=== PATIENT | male | born 1960 | race Caucasian/White ===

== ENCOUNTER 2025-02-28 19:34 | Emergency (ER) | payer MEDICAID, SELFPAY ==
--- NOTE | ~2025-02-28 | XR_ITS ---
EXAMINATION: XR chest 2V Exam Date/Time: 02/28/2025 20:01 CDT HISTORY: sob Comparison: None. RESULT: Lines, tubes, and devices: None. Lungs and pleura: Irregular nodular opacity over the right upper lung, lungs otherwise clear. Mild b lunting of the left posterior costophrenic angle Cardiomediastinal silhouette: Stable. Other: No acute osseous or upper abdominal finding. IMPRESSION: Possible right upper lung pulmonary nodule versus summation artifact, recommend comparison to outside studies if available or timely outpatient low-dose noncontrast CT of the chest for confirmation. Trace left pleural effusion versus chronic pleural scarring. Reviewed, dictated and finalized at location K. IMPRESSION: Possible right upper lung pulmonary nodule versus summation artifact, recommend comparison to outside studies if available or timely outpatient low-dose nonco ntrast CT of the chest for confirmation. Trace left pleural effusion versus chronic pleural scarring.
[2025-02-28 19:43] VITALS: BP 153/85; PULSE 76; RESP 16; TEMP 36.4; O2SAT 97
--- NOTE | 2025-02-28 19:48 | ECG_ITS ---
Test Date: 2025-02-28 19:52:49 Measurements Intervals [place] Rate: 72 P: 37 SC: 157 QRS: -53 QRSD: 154 T: 10 QT: 392 QTc: 430 Interpretive Statements SINUS RHYTHM RIGHT BUNDLE BRANCH BLOCK [120+ ms QRS DURATION, UPRIGHT V1, 40+ ms S IN I/aVL/V4/V5/V6] LEFT ANTERIOR FASCICULAR BLOCK [QRS AXIS <= -45, QR IN I, RS IN II] ABNORMAL ELECTROCARDIOGRAM No previous ECG available for comparison Electronically Signed On 03-01-2025 07:41:53 CDT by Moe Kidd M.D.
[2025-02-28 20:03] LABS: Hematocrit 38.3 % (42.0-52.0); Hemoglobin 12.7 g/dL (14.0-18.0); Immature Granulocyte Percent A 0.3 % (0-0.5); Lymphocytes Absolute Auto 1.23 K/mm3 (0.9-3.2); Mean Corpuscular HGB Conc 33.2 g/dl (32-36); Mean Corpuscular Hemoglobin 29.3 pg (26-34); Mean Corpuscular Volume 88.5 fl (80-100); Nucleated Red Blood Cells Absolute Auto 0.000 K/mm3 (0.0-0.012); Nucleated Red Blood Cells Perc 0.0 % (0.0-0.2); Platelet Count Result 199 k/mm3 (150-375); Red Blood Count 4.33 M/mm3 (4.6-6.20); White Blood Count 9.0 K/mm3 (4.5-10.0)
[2025-02-28 20:14] LABS: INR 1.0; Prothrombin Time 13.8 Seconds (11.1-14.7)
[2025-02-28 20:15] LABS: Partial Thromboplastin Time 26.9 Seconds (22.3-36.8)
[2025-02-28 20:42] LABS: Alanine Aminotransferase 24 U/L (6-50); Albumin Level 4.4 g/dL (3.5-5.1); Alkaline Phosphatase 72 U/L (38-126); Anion Gap 12 mmol/L (4-12); Aspartate Amino Transferase 29 U/L (17-59); Bilirubin,Total 0.5 mg/dL (0.2-1.3); Blood Urea Nitrogen 21 mg/dL (9-20); Calcium 9.4 mg/dL (8.4-10.2); Carbon Dioxide 22 mmol/L (22-30); Chloride 101 mmol/L (98-107); Estimated CRCL calculation 69 ml/min; Estimated Glomerular Filt Rate > 60; Glucose 109 mg/dL (65-110); Potassium 3.8 mmol/L (3.4-5.0); Sodium 135 mmol/L (137-145); Total Protein 7.4 g/dL (6.3-8.2)
[2025-02-28 20:54] LABS: Troponin I < 0.012 ng/mL (0.000-0.034)
[2025-03-01 00:07] VITALS: BP 129/75; PULSE 72; RESP 16; O2SAT 96
--- OUTSIDE RECORDS SUMMARY | 2025-03-01 00:11 | XMS_ITS | Clinical Summary ---
Author Organization [facility] [address] Address [address] [place] [address] Care Team Providers Care Counseling Specialist Name Role Phone Unavailable Primary Care Provider Unavailabl e Allergies No known active allergies Medications No known medications Immunizations Immunization Administration Dates Next Due (ADACEL/BOOSTRIX)(10 YR UP) TDAP VACCINE, 0.5ML, IM 07/28/2018 Social History Tobacco Use Types Packs/Day Years Used Date Smoking Tobacco: Never Smokeless Tobacco: Never Alcohol Use Standard Drinks/Week Comments No 0 (1 standard drink = 0.6 oz pur e alcohol) Sex and Gender Information Value Date Recorded Sex Assigned at Not on file Legal Sex Male 9:55 PM CDT Gender Identity Not on file Sexual Orientation Not on file Last Filed Vital Signs Vital Sign Reading Time Taken Comments Blood Pressure 146/88 07/28/2018 10:28 AM ENGAGEMENT LEAD manual left arm Pulse - - Temperature 36.6 C (97.9 F) 07/28/2018 8:17 AM ENGAGEMENT LEAD Respiratory Rate 16 07/28/2018 8:17 AM ENGAGEMENT LEAD Oxygen Saturation 96% 07/28/2018 8:1 7 AM ENGAGEMENT LEAD Inhaled Oxygen Concentration - - Weight 106.6 kg (235 lb) 07/28/2018 8:1 7 AM ENGAGEMENT LEAD Height 185.4 cm (6' 1) 07/28/2018 8:17 AM ENGAGEMENT LEAD Body Mass Index 31 07/28/2018 8:17 AM ENGAGEMENT LEAD Plan of Treatment Health Maintenance Due Date Last Done Comments Pre-Diabetes and Diabetes Screening 1961 COLORECTAL SCREENING 2006 Colorectal Cancer Screening 2006 FIT-DNA Q 3 years 2006 FIT/FOBT Q 1 year 2006 Flex Sig/CT Colonography Q 5 years 2006 ZOSTER VACCINE (1 of 2) 2011 INFLUENZA VACCINE (#1) 2025 DTAP/TDAP/TD VACCINES (3 - Td or Tdap) 06/14/2033, 07/28/2018 RSV VACCINE (60+ or ) (1 - 1-dose 75+ series) 2036
--- OUTSIDE RECORDS SUMMARY | 2025-03-01 00:11 | XMS_ITS | Clinical Summary ---
Author Organization [facility] [facility] Address [address] [facility] [address] Care Team Providers Care Chicken Stuffer Name Role Phone Shireen Churchill MD Primary Care Provider [phone] Source Comments [facility],non-owned Affiliates and Associated Physician Practices is amultiple site organization consisting of ambulatory clinics and hospital sitesin [place], [place], [place] and [place]. This disclosure is being madepursuant to the Care Everywhere program and may not contain all information available regarding this patient. Last updated 18.[facility] Allergies No known active allergies Medications * Be aware that medications may not be up to date on this document. Alwaysverify current medications with the patient. diphenhydrAMIN E-APAP, sleep, (Tylenol PM Extra Strength) 25-500 MG tablet Take 1 (one) tablet by mouth nightly as needed for Insomnia Active cyclobenzaprin e (Flexeril) 10 MG tablet Take 1 (one) tablet by mouth 3 times daily as needed for Muscle Spasms 30 tablet 4 Active methocarbamol (Robaxin) 500 MG tablet Take 1-3 tablets by mouth every 6 hours as needed for back pain or spasm X2 days Then take 1-2 tablets by mouth every 8 hours as needed. 30 tablet 4 Active acetaminophen (Tylenol) 500 MG tablet Take 1 (one) tablet by mouth every 4 hours as needed for Fever or Pain Maximum allowable Acetaminophen amount = 4 Grams (4000 mg) / 24 hours. Active atorvastatin (Lipitor) 40 MG tablet Take 1 (one) tablet by mouth once daily 100 tablet 4 4 Active Additional Information Patient not taking.Reported on 12/03/2024 lisinopril-hyd roCHLOROthiazi de (Prinzide; Zestoretic) 20-12.5 MG tablet Take 1 (one) tablet by mouth once daily 90 tablet 3 4 Active meloxicam (Mobic) 15 MG tablet TAKE 1 TABLET BY MOUTH DAILY 90 tablet 5 Active Active Problems Problem Noted Date Diagnosed Date Hypertension 04/30/2024 Arthritis of right hip 04/30/2024 Encounters Date Type Department Care Team Description 01/15/2025 Refill [facility] [address] [facility] [address] [place] [address] Shireen Churchill MD Refill Request 12/03/2024 11:10 AM CDT - 12/03/2024 11:59 PM CDT Hospital Encounter [facility] [address] [place] [address] Ximena Ontiveros, ESL TEACHER-RAMP AND CARGO SUPERVISOR Stefan Fulton APRN-TAE Discharge Disposition: Home or Self Care 12/03/2024 Travel from Last 3 Months Immunizations Immunization Administration Dates Next Due TDAP (7yrs+) 06/14/2023,07/28/2018 Social History Tobacco Use Types Packs/Day Years Used Date Smoking Tobacco: Never Smokeless Tobacco: Never Tobacco Cessation:Counseling Given: Not Answered Alcohol Use Standard Drinks/Week Comments Not Currently 0 (1 standard drink = 0.6 oz pur e alcohol) PHQ-2 Answer Date Recorded Patient Health Questionnaire-2 Score 0 12/03/2024 Sex and Gender Information Value Date Recorded Sex Assigned at Not on file 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 Gender Identity Not on file Sexual Orientation Not on file Last Filed Vital Signs Vital Sign Reading Time Taken Comments Blood Pressure 163/108 12/03/2024 12:26 PM CDT Pulse 57 04/30/2024 11:12 AM CDT Temperature 36.3 C (97.3 F) 12/03/2024 12:11 PM CDT Respiratory Rate 16 12/03/2024 12:11 PM CDT Oxygen Saturation 98% 12/03/2024 12:11 PM CDT Inhaled Oxygen Concentration - - Weight 99.1 kg (218 lb 6.4 oz) 04/30/2024 11:12 AM CDT Height 185.4 cm (6' 1) 04/30/2024 11:12 AM CDT Body Mass Index 28.81 04/30/2024 11:12 AM CDT Plan of Treatment Health Maintenance Due Date Last Done Comments COLOGUARD (AGES 45-75) - COL ON CA SCREENING 1961 COLON MONITORING 1961 COLONOSCOPY - COLON CA SCREENING 1961 CT COLONOGRAPHY - COLON CA SCREENING 1961 Colorectal Cancer Screening 1961 FIT - COLON CA SCREENING 1961 FLEX SIG - COLON CA SCREENING 1961 HIV SCREENING 1976 HEPATITIS C SCREENING 03/02/1979 PNEUMOCOCCAL VACCINE 50+ (1 of 1 - PCV) 2011 ZOSTER VACCINE (1 of 2) 2011 COVID-19 VACCINE (1 - 2023-2 5 season) 2024 INFLUENZA VACCINE (#1) 2025 SCREENING FOR DIABETES 04/30/2027 , 01/13/2024, 01/13/2024 DTAP/TDAP/TD VACCINES (3 - T d or Tdap) 06/14/2033 06/14/2023, 07/28/2018 Respiratory Syncytial Virus (RSV) Vaccine Pt: or over 60 yrs (1 - 1-dose 75+ series) 2036 DEPRESSION SCREENING Completed 12/03/2024, 10/11/2023 HEPATITIS B VACCINE Aged Out No longe r eligible based on patient's age to complete this topic HIB VACCINE Aged Out No longer eligi ble based on patient's age to complete this topic HPV VACCINE Aged Out No longer eligi ble based on patient's age to complete this topic MENINGOCOCCAL (Group B) VACCINE SHARED DECISION-MAKING Aged Out No longer eligible based on patient's age to complete this topic MENINGOCOCCAL GROUPS A/C/Y/W VACCINE Aged Out No longer eligible b ased on patient's age to complete this topic Procedures Procedure Name Priority Date/Time Associated Diagnosis Comments BASIC METABOLIC PANEL (CALCIUM TOTAL) Routine 04/30/2024 11:46 AM CDT Hypertension, unspecified type from Last 3 Months or Most Recently Relevant to Health Maintenance Results * (ABNORMAL) BASIC METABOLIC PANEL (BMP) (04/30/2024 11:46 AM CDT) Glucose 117(H) 70 - 105 mg/dL [facility] ACCOUNT BILL BUN 13 7 - 26 mg/dL [facility] ACCOUNT BILL Creatinine 1.13 0.72 - 1.25 mg/dL [facility] ACCOUNT BILL eGFR by CKD-EPI 73(L) >=90 mL/min/1.7 3 m2 [facility] ACCOUNT BILL Sodium 141 136 - 145 mmol/L [facility] ACCOUNT BILL Potassium 4.2 3.5 - 5.1 mmol/L [facility] ACCOUNT BILL Chloride 105 98 - 107 mmol/L [facility] ACCOUNT BILL CO2 25 22 - 29 mmol/L [facility] ACCOUNT BILL Calcium 9.7 8.4 - 10.4 mg/dL [facility] ACCOUNT BILL Blood BLOOD SPECIMEN / Unknown 04/30/2024 11:46 AM CDT 04/30/2024 Narrative [facility] ACCOUNT BILL - 04/30/2024 9:07 PM CDT Performed at: [address] [place] [id number] Interactive Multimedia Designer: Lacy Daley MD, Phone: [phone] us Shireen Churchill MD LAB - CHEMISTRY ORDERABLES Final Result [facility] ACCOUNT BILL [address] [place] [address] from Last 3 Months or Most Recently Relevant to Health Maintenance Care Teams Chicken Stuffer Relationship Specialty Start Date End Date Shireen Churchill MD [address] [facility] [address] [place] [address] PCP - General Family Medicine 03/13/24
--- NOTE | 2025-03-01 00:16 | ECG_ITS ---
Test Date: 2025-03-01 00:16:08 Measurements Intervals [place] Rate: 74 P: 36 ID: 164 QRS: -42 QRSD: 153 T: -5 QT: 379 QTc: 421 Interpretive Statements SINUS RHYTHM LEFT AXIS DEVIATION [QRS AXIS < -30] RIGHT BUNDLE BRANCH BLOCK [120+ ms QRS DURATION, UPRIGHT V1, 40+ ms S IN I/aVL/V4/V5/V6] ABNORMAL ECG Compared to ECG 02/28/2025 19:52:49 NO DIFFERENCE Electronically Signed On 03-01-2025 14:15:22 CDT by Moe Kidd M.D.
--- NOTE | 2025-03-01 00:21 | ED.SOB ---
HPI - SOB/Dyspnea General Chief Complaint: Shortness of Breath/Dyspnea Stated Complaint: SOB, hip and hand pain, body is ready to give up Time Seen by Provider: 02/28/25 23:59 History of Present Illness HPI Narrative: 64-year-old male with history of chronic arthritis and carpal tunnel presenting to the emergency department for complaints of an episode of shortness of breath last night. He states while he was in bed and getting up going to the bathroom he felt slightly short of breath and this resolved prior to arrival. Denies any chest pain or chest pressure with this sensation, no lightheadedness, dizziness, nausea, vomiting, back pain, abdominal pain. No history of any like this happening in the past. He has been in more pain recently from his arthritis in his hip and carpal tunnel as wrist and his states that he could of been anxious during that event but presently he is asymptomatic and denies any symptoms at all when examining him. No chronic medical conditions to his knowledge, no recent hospital visits or hospitalizations. Review of Systems Review of Systems: As reviewed above in HPI Exam Narrative: GENERAL: [Well-appearing, well-nourished, and in no acute distress.] HEAD: [Normocephalic, atraumatic.] EYES: [PERRLA and EOMI.] ENT: Nares clear, no rhinorrhea or epistaxis. Mucous membranes moist. NECK: Supple. CHEST: [Clear to auscultation. No respiratory distress.] HEART: [Regular rate and rhythm]. No murmur heard. [Normal peripheral pulses.] ABDOMEN: [Soft, nondistended], [nontender], [No rigidity or guarding] EXTREMITIES: Normal range of motion. [No edema.] SKIN: Warm, dry, no rash. NEURO: [No focal deficits]. Alert and oriented [x3.] PSYCH: [Normal mood and affect.] Course Vital Signs Vital signs: Vital Signs Temperature 36.4 C L 02/28/25 19:43 Pulse Rate 76 02/28/25 19:43 Respiratory Rate 16 02/28/25 19:43 Blood Pressure 153/85 H 02/28/25 19:43 Pulse Oximetry 97 02/28/25 19:43 Oxygen Delivery Room Air 02/28/25 19:43 Temperature 36.4 C L 02/28/25 19:43 Pulse Rate 73 03/01/25 00:34 Respiratory Rate 18 03/01/25 00:34 Blood Pressure 126/78 03/01/25 00:34 Pulse Oximetry 96 03/01/25 00:34 Oxygen Delivery Room Air 03/01/25 00:07 MDM - SOB/Dyspnea MDM Narrative Medical decision making narrative: 64-year-old male with history of chronic arthritis and carpal tunnel presenting to the emergency department for complaints of an episode of shortness of breath last night. He states while he was in bed and getting up going to the bathroom he felt slightly short of breath and this resolved prior to arrival. Denies any chest pain or chest pressure with this sensation, no lightheadedness, dizziness, nausea, vomiting, back pain, abdominal pain. No history of any like this happening in the past. He has been in more pain recently from his arthritis in his hip and carpal tunnel as wrist and his states that he could of been anxious during that event but presently he is asymptomatic and denies any symptoms at all when examining him. No chronic medical conditions to his knowledge, no recent hospital visits or hospitalizations. Patient is very well-appearing not any acute distress with normal vital signs without any significant hypertension, tachycardia, fever, hypoxia or tachypnea. He has clear breath sounds, strong symmetric pulses. Differential is broad given the vague symptomatology but overall he is well-appearing without any high risk factors for coronary syndrome, ACS or any infectious historical features to point towards pneumonia or bronchitis. [place] criteria. Cardiac workup ordered including troponin, EKG, chest x-ray, CBC, CMP. He was placed on disbursement clerk and re-evaluated. EKG shows right bundle branch block but no evidence of ST segment elevations, depressions or acute ischemia. Patient's workup was reassuring with no leukocytosis or significant levels of anemia. Normal platelet count. Normal coagulation panel, normal electrolytes, normal kidney function, normal glucose, normal LFTs. Negative troponin. Chest x-ray independently reviewed and also interpreted by Radiology shows a possible pulmonary nodule versus summation artifact with recommendations for outpatient timely follow-up image. Chronic pleural scarring is seen, no large effusions. Repeat EKG shows no delta changes from initial without any ST segment concerns. I discussed patient's x-ray findings with him and the need for outpatient evaluation and several months for repeat imaging and he was agreeable to this. He remains asymptomatic during our conversations and given his unremarkable laboratory studies, imaging and EKG. Patient felt comfortable going home at this time with close follow-up primary care. Given return precautions and discharge instructions and their questions were answered. Medical Records Attestation: I reviewed the patient's medical records. Lab Data Attestation: I reviewed the patient's lab results. 02/28/25 19:57 02/28/25 19:56 Labs: Lab Results 02/28/25 02/28/25 02/28/25 Range/Units 19:56 19:57 19:58 WBC 9.0 (4.5-10.0) K/mm3 RBC 4.33 L (4.6-6.20) M/mm3 Hgb 12.7 L (14.0-18.0) g/dL Hct 38.3 L (42.0-52.0) % MCV 88.5 (80-100) fl MCH 29.3 (26-34) pg MCHC 33.2 (32-36) g/dl RDW 12.5 (11.5-14.5) % Plt Count 199 (150-375) k/mm3 MPV 10.4 (7.4-10.4) fl Immature Gran % (Auto) 0.3 (0-0.5) % Neut % (Auto) 76.7 H (45.5-73.1) % Lymph % (Auto) 13.7 L (18.3-44.2) % [place] % (Auto) 8.3 (2.6-8.5) % Eos % (Auto) 0.4 (0-4.4) % Baso % (Auto) 0.6 (0.2-1.2) % Lymph # (Auto) 1.23 (0.9-3.2) K/mm3 [place] # (Auto) 0.7 H (0.1-0.6) K/mm3 Eos # (Auto) 0.0 (0-0.3) K/mm3 Baso # (Auto) 0.1 (0.0-0.1) K/mm3 Abs Immat Gran (auto) 0.03 (0.00-0.031) K/mm3 Absolute Neuts (auto) 6.9 H (1.3-6.7) K/mm3 Absolute Nucleated RBC 0.000 (0.0-0.012) K/mm3 Nucleated RBC % 0.0 (0.0-0.2) % PT 13.8 (11.1-14.7) Seconds INR 1.0 APTT 26.9 (22.3-36.8) Seconds Sodium 135 L (137-145) mmol/L Potassium 3.8 (3.4-5.0) mmol/L Chloride 101 (98-107) mmol/L Carbon Dioxide 22 (22-30) mmol/L Anion Gap 12 (4-12) mmol/L BUN 21 H (9-20) mg/dL Creatinine 1.10 (0.7-1.3) mg/dL Estim Creat Clear Calc 69 ml/min Estimated GFR > 60 (59 - ) Glucose 109 (65-110) mg/dL Calcium 9.4 (8.4-10.2) mg/dL Total Bilirubin 0.5 (0.2-1.3) mg/dL AST 29 (17-59) U/L ALT 24 (6-50) U/L Alkaline Phosphatase 72 (38-126) U/L Troponin I < 0.012 (0.000-0.034) ng/mL Total Protein 7.4 (6.3-8.2) g/dL Albumin 4.4 (3.5-5.1) g/dL Imaging Data Attestation: I personally reviewed and interpreted this imaging study as follows: My impression: Impressions Chest X-Ray 02/28/25 20:28 IMPRESSION: Possible right upper lung pulmonary nodule versus summation artifact, recommend comparison to outside studies if available or timely outpatient low-dose noncontrast CT of the chest for confirmation. Trace left pleural effusion versus chronic pleural scarring. Discharge Plan Discharge Clinical Impression: Mild shortness of breath, Abnormal chest x-ray Patient Disposition: Home Condition: Stable Instructions: Antibiotic Form, Shortness of Breath (ED) Additional Instructions: Your laboratory studies are all reassuring today. Your chest x-ray does not show any pneumonia or collapsing of your lung. There is a possible right upper lobe pulmonary nodule versus artifact on the image that just needs to be followed up with on outpatient basis. Contact your primary care provider to get this arranged, unlikely related to any of your symptoms at this time. Return to the emergency department if you start feeling persistent or worsening shortness of breath, developing chest pain or chest pressure sensations, lightheadedness or passing out or any other emergent concerns. Patient Language: Croatian Follow-up/Referrals: José Luis March MD [Physician] - 1 Month (Establish PCP care) PHYSICIAN,EDGE BANDER OPERATOR [Primary Care Provider] - Stand Alone Forms: Work/School Release IP Time of Disposition: 00:27
[2025-03-01 00:34] VITALS: BP 126/78; PULSE 73; RESP 18; O2SAT 96
== END 2025-03-01 00:35 | disposition home or self-care (01) ==
PROVIDERS: Emergency Medicine; Emergency Provider Student in an Organized Health Care Education/Training Program
DX: R06.02 Shortness of breath (principal); R91.8 Other nonspecific abnormal finding of lung field; I45.2 Bifascicular block
CPT/HCPCS: 36415; 71046; 80053; 84484; 85025; 85610; 85730; 93005; 99284